=== PATIENT | male | born 1970 | race African-American/Black ===

== ENCOUNTER 2017-10-23 20:09 | Emergency (ER) | payer BC ==
[2017-10-23] MEDS: ACETAMINOPHEN 500 MG TABLET PO (21:28)
[2017-10-24 06:43] LABS: NEGATIVE OBC STREP NEG; POSITIVE OBC STREP POS
== END 2017-10-23 21:50 | disposition home or self-care (01) ==
LOC: ER 20:09
DX: J18.1 Lobar pneumonia, unspecified organism (principal); R50.9 Fever, unspecified; I10 Essential (primary) hypertension
CPT/HCPCS: 71046; 87070; 87880; 99285-25